=== PATIENT | female | born 1980 | race Caucasian/White ===

== ENCOUNTER 2017-11-09 18:14 | Emergency (ER) | payer MEDICARE, MEDICAID ==
[~2017-11-09] VITALS: Ht 165.1 cm; Wt 98.0 kg
[~2017-11-09 18:14] MED LIST: AFRIN NS; CLON-529 PO; LIDO35.4 TOP; TRAM50TA2 PO; compounded cream TOP
[2017-11-09 19:06] LABS: BASOPHILS # (AUTO) 0.1 X10'3 (0-0.2); BASOPHILS % (AUTO) 1.4 % (0-1); EOSINOPHILS # (AUTO) 0.1 X10'3 (0-0.9); EOSINOPHILS % (AUTO) 2.8 % (0-6); HEMATOCRIT 35.8 % (35.0-45.0); HEMOGLOBIN 12.3 g/dl (12.0-16.0); LYMPHOCYTES # (AUTO) 1.7 X10'3 (1.1-4.8); LYMPHOCYTES % (AUTO) 32.4 % (21-51); MEAN CORPUSCULAR HEMOGLOBIN 28.1 PG (27.0-31.0); MEAN CORPUSCULAR HGB CONC 34.3 % (33.0-36.5); MEAN PLATELET VOLUME 8.3 FL (7.4-10.4); MONOCYTES # (AUTO) 0.2 X10'3 (0-0.9); MONOCYTES % (AUTO) 4.5 % (2-12); NEUTROPHILS # (AUTO) 3.1 X10'3 (1.8-7.7); NEUTROPHILS % (AUTO) 58.9 % (42-75); PLATELET COUNT 290 X10'3 (140-440); RED BLOOD COUNT 4.36 X10'6 (4.20-5.60); RED CELL DISTRIBUTION WIDTH 13.5 % (11.5-14.5); WHITE BLOOD COUNT 5.2 X10'3 (4.5-11.0)
[2017-11-09 19:16] LABS: ALANINE AMINOTRANSFERASE 51 U/L (12-78); ALBUMIN 3.4 G/DL (3.4-5.0); ALBUMIN/GLOBULIN RATIO 0.9 (1.1-1.5); ALKALINE PHOSPHATASE 96 IU/L (46-116); ANION GAP 8 (8-16); ASPARTATE AMINO TRANSFERASE 45 U/L (10-37); BILIRUBIN,TOTAL 0.5 MG/DL (0.1-1.0); BLOOD UREA NITROGEN 9 MG/DL (7-18); BUN/CREATININE RATIO 11.5 (6.6-38.0); CHLORIDE 106 MMOL/L (99-107); CREATININE 0.78 MG/DL (0.40-0.90); GLUCOSE 107 MG/DL (70-104); POTASSIUM 3.7 MMOL/L (3.5-5.1); SODIUM 141 MMOL/L (135-145); TOTAL CARBON DIOXIDE 27.2 MMOL/L (24-32); TOTAL PROTEIN 7.1 G/DL (6.4-8.2); eGFR 83 ML/MIN
[2017-11-09 19:25] LABS: ETHANOL < 0.010 GM/DL (0.0-0.010)
[2017-11-09 19:35] LABS: URINE HCG NEGATIVE (NEG)
[2017-11-09 19:46] LABS: URINE AMPHETAMINE SCREEN NEGATIVE (Neg); URINE BARBITUATE SCREEN NEGATIVE (Neg); URINE BENZODIAZEPINES SCREEN NEGATIVE (Neg); URINE CANNABINOID SCREEN NEGATIVE (Neg); URINE COCAINE SCREEN NEGATIVE (Neg); URINE METHADONE SCREEN NEGATIVE (Neg); URINE OPIATE SCREEN POSITIVE (Neg); URINE PHENCYCLIDINE SCREEN NEGATIVE (Neg)
[2017-11-09 19:56] LABS: CLARITY,URINE CLEAR (Clear); COLOR,URINE ORANGE (Yellow); GLUCOSE, URINE NEGATIVE (Neg); KETONES,URINE NEGATIVE (Neg); LEUKOCYTE ESTERASE ,URINE SMALL (Neg); NITRITES, URINE NEGATIVE (Neg); OCCULT BLOOD,URINE NEGATIVE (Neg); PROTEIN,URINE NEGATIVE (Neg)
[2017-11-09] MEDS ORDERED: CIPR-259 PO (20:01)
[2017-11-09] MEDS ORDERED: METR500T4 PO (20:01)
[2017-11-09] MEDS ORDERED: AFRIN NS (20:02)
[2017-11-09] MEDS ORDERED: BACL10TA PO (20:04)
[2017-11-09] MEDS ORDERED: HYDR-565 PO (20:04)
[2017-11-09] MEDS ORDERED: GABA600T2 PO ×2 (20:05→23:15)
[2017-11-09 20:06] VITALS: BP 128/66
[2017-11-09] MEDS ORDERED: ACET-2119 PO (20:06)
[2017-11-09 20:08] LABS: UA COLLECTION TYPE CLN CATCH MIDSTREAM
[2017-11-09 20:10] LABS: BACTERIA,URINE 3+ /HPF (Neg); SQUAMOUS EPITHELIAL CELL,UR MODERATE /LPF (FEW)
[2017-11-09 20:11] LABS: RBC,URINE 0-2 /HPF (0-2)
[2017-11-09] MEDS ORDERED: CLON-528 PO (23:15)
== END 2017-11-09 22:12 ==
LOC: ER 18:15
DX: N39.0 Urinary tract infection, site not specified (principal); R45.851 Suicidal ideations; F11.20 Opioid dependence, uncomplicated; G89.29 Other chronic pain; Z88.0 Allergy status to penicillin; Z88.8 Allergy status to other drugs, medicaments and biological substances; Z79.899 Other long term (current) drug therapy
CPT/HCPCS: 36415; 80053; 80305; 80320; 81001; 81025; 84443; 85025; 99285

== ENCOUNTER 2017-11-09 21:30 | Inpatient (IN) | payer MEDICARE, MEDICAID ==
[~2017-11-09] VITALS: Ht 165.1 cm; Wt 96.8 kg
[~2017-11-09 21:30] MED LIST changes: +ACET-2119 PO; +BACL10TA PO; +CIPR-259 PO; +GABA600T2 PO; +HYDR-565 PO; +METR500T4 PO
[2017-11-09 22:49] VITALS: BP 154/75
[2017-11-09] MEDS ORDERED: GABA600T2 PO (23:15)
[2017-11-09] MEDS ORDERED: CLON-528 PO (23:15)
[2017-11-09] MEDS ORDERED: traMADol 50MG tablet PO PRN (23:30)
[2017-11-09] MEDS ORDERED: HYDROcodone/acetaminophen 10/325mg tab PO PRN (23:30)
[2017-11-10] MEDS: cloNIDine 0.1 mg tablet PO SCH ×2 (00:08→21:02)
[2017-11-10] MEDS: gabapentin 300mg capsule PO SCH ×4 (00:08→21:02)
[2017-11-10] MEDS: clonazePAM 0.5mg tablet PO PRN ×2 (00:08→21:03)
[2017-11-10] MEDS: baclofen 10mg tablet PO SCH ×2 (00:08→21:02)
[2017-11-10 08:00] VITALS: BP 128/70
[2017-11-10 20:37] VITALS: BP 136/81
[2017-11-10] MEDS: oxymetazoline 15 ML nasal spray NS SCH (21:05)
[2017-11-11] MEDS: gabapentin 300mg capsule PO SCH ×3 (07:54→21:34)
[2017-11-11 08:00] VITALS: BP 103/53
[2017-11-11] MEDS ORDERED: buprenorphine/naloxone 2-0.5mg sublingual tablet SL ONE (08:40)
[2017-11-11 19:32] VITALS: BP 147/74
[2017-11-11] MEDS: clonazePAM 0.5mg tablet PO PRN (21:34)
[2017-11-11] MEDS: oxymetazoline 15 ML nasal spray NS SCH (21:35)
[2017-11-11] MEDS: cloNIDine 0.1 mg tablet PO SCH (21:35)
[2017-11-11] MEDS: baclofen 10mg tablet PO SCH (21:35)
[2017-11-11] MEDS: buprenorphine/naloxone 2-0.5mg sublingual tablet SL SCH (21:53)
[2017-11-12] MEDS: buprenorphine/naloxone 2-0.5mg sublingual tablet SL SCH (05:52)
[2017-11-12 08:00] VITALS: BP 112/67
[2017-11-12] MEDS: gabapentin 300mg capsule PO SCH ×2 (08:08→13:02)
[2017-11-12] MEDS ORDERED: buprenorphine/naloxone 2-0.5mg sublingual tablet SL SCH (13:00)
[2017-11-12 19:00] VITALS: BP 128/82
[2017-11-12] MEDS: cloNIDine 0.1 mg tablet PO SCH (21:25)
[2017-11-12] MEDS: gabapentin 400mg capsule PO SCH (21:25)
[2017-11-12] MEDS: oxymetazoline 15 ML nasal spray NS SCH (21:26)
[2017-11-12] MEDS: baclofen 10mg tablet PO SCH (21:26)
[2017-11-12] MEDS: clonazePAM 0.5mg tablet PO PRN (21:46)
[2017-11-13 07:39] VITALS: BP 99/58
[2017-11-13] MEDS: gabapentin 400mg capsule PO SCH ×3 (07:45→20:39)
[2017-11-13] MEDS: buprenorphine/naloxone 2-0.5mg sublingual tablet SL SCH ×2 (07:45→20:39)
[2017-11-13] MEDS: metroNIDAZOLE 500mg tablet PO SCH (16:21)
[2017-11-13] MEDS: Protein Smoothie (high protein) 240ml (8oz) cup PO SCH (18:00)
[2017-11-13 19:00] VITALS: BP_SYST 124; BP_SYST 136; BP_DIAS 66; BP_DIAS 80
[2017-11-13] MEDS: ciprofloxacin 250mg tablet PO SCH (19:48)
[2017-11-13] MEDS: cloNIDine 0.1 mg tablet PO SCH (20:39)
[2017-11-13] MEDS: oxymetazoline 15 ML nasal spray NS SCH (20:39)
[2017-11-13] MEDS: baclofen 10mg tablet PO SCH (20:39)
[2017-11-13] MEDS: clonazePAM 0.5mg tablet PO PRN (21:29)
[2017-11-14] MEDS: metroNIDAZOLE 500mg tablet PO SCH ×4 (00:27→23:59)
[2017-11-14 08:00] VITALS: BP 114/70
[2017-11-14] MEDS: Protein Smoothie (high protein) 240ml (8oz) cup PO SCH ×3 (08:00→18:00)
[2017-11-14] MEDS: ciprofloxacin 250mg tablet PO SCH ×2 (08:00→21:01)
[2017-11-14] MEDS: buprenorphine/naloxone 2-0.5mg sublingual tablet SL SCH ×2 (08:00→21:01)
[2017-11-14] MEDS: gabapentin 400mg capsule PO SCH ×3 (08:01→21:00)
[2017-11-14 20:00] VITALS: BP 118/67
[2017-11-14] MEDS: lactobacillus rhamnosus 10,000 MMU CELLS/CAPSULE PO SCH (21:00)
[2017-11-14] MEDS: cloNIDine 0.1 mg tablet PO SCH (21:00)
[2017-11-14] MEDS: baclofen 10mg tablet PO SCH (21:01)
[2017-11-14] MEDS: clonazePAM 0.5mg tablet PO PRN (21:20)
[2017-11-15 08:00] VITALS: BP 93/59
[2017-11-15] MEDS: Protein Smoothie (high protein) 240ml (8oz) cup PO SCH ×3 (08:00→17:46)
[2017-11-15] MEDS: ciprofloxacin 250mg tablet PO SCH ×2 (08:05→20:00)
[2017-11-15] MEDS: gabapentin 400mg capsule PO SCH ×3 (08:06→20:25)
[2017-11-15] MEDS: buprenorphine/naloxone 2-0.5mg sublingual tablet SL SCH ×2 (08:06→20:25)
[2017-11-15] MEDS: metroNIDAZOLE 500mg tablet PO SCH ×2 (08:06→16:07)
[2017-11-15] MEDS: lactobacillus rhamnosus 10,000 MMU CELLS/CAPSULE PO SCH ×2 (08:06→20:25)
[2017-11-15] MEDS ORDERED: acetaminophen 325mg tablet PO PRN (16:10)
[2017-11-15 20:00] VITALS: BP 115/60
[2017-11-15] MEDS: cloNIDine 0.1 mg tablet PO SCH (20:27)
[2017-11-15] MEDS: baclofen 10mg tablet PO SCH (20:28)
[2017-11-15] MEDS: clonazePAM 0.5mg tablet PO PRN (21:00)
[2017-11-16 08:00] VITALS: BP 101/51
[2017-11-16] MEDS: Protein Smoothie (high protein) 240ml (8oz) cup PO SCH ×3 (08:00→18:00)
[2017-11-16] MEDS: metroNIDAZOLE 500mg tablet PO SCH ×3 (08:00→15:49)
[2017-11-16] MEDS: ciprofloxacin 250mg tablet PO SCH ×2 (08:00→20:00)
[2017-11-16] MEDS: lactobacillus rhamnosus 10,000 MMU CELLS/CAPSULE PO SCH ×2 (08:11→20:15)
[2017-11-16] MEDS: buprenorphine/naloxone 2-0.5mg sublingual tablet SL SCH ×2 (08:11→20:15)
[2017-11-16] MEDS: gabapentin 400mg capsule PO SCH ×3 (08:12→20:15)
[2017-11-16 19:00] VITALS: BP 118/65
[2017-11-16] MEDS: baclofen 10mg tablet PO SCH (20:14)
[2017-11-16] MEDS: clonazePAM 0.5mg tablet PO PRN (20:14)
[2017-11-16] MEDS: cloNIDine 0.1 mg tablet PO SCH (20:15)
[2017-11-17] MEDS: lactobacillus rhamnosus 10,000 MMU CELLS/CAPSULE PO SCH (07:57)
[2017-11-17] MEDS: buprenorphine/naloxone 2-0.5mg sublingual tablet SL SCH (07:58)
[2017-11-17] MEDS: gabapentin 400mg capsule PO SCH (07:58)
[2017-11-17 08:00] VITALS: BP 94/52
[2017-11-17] MEDS: metroNIDAZOLE 500mg tablet PO SCH ×2 (08:00)
[2017-11-17] MEDS: Protein Smoothie (high protein) 240ml (8oz) cup PO SCH (08:00)
[2017-11-17] MEDS: ciprofloxacin 250mg tablet PO SCH (08:00)
[2017-11-17] MEDS ORDERED: BUPR1TAB52 SL (09:27)
[2017-11-17] MEDS ORDERED: GABA800T2 PO (09:27)
== END 2017-11-17 12:45 | disposition home or self-care (01) | DRG 885 ==
LOC: ADULT MH 21:30
PROVIDERS: ADMIT Psychiatry & Neurology Psychiatry; ATTEND Psychiatry & Neurology Psychiatry
DX: F33.2 Major depressive disorder, recurrent severe without psychotic features (principal); R45.851 Suicidal ideations; K57.92 Diverticulitis of intestine, part unspecified, without perforation or abscess without bleeding; F11.10 Opioid abuse, uncomplicated; G89.29 Other chronic pain; F60.3 Borderline personality disorder; Z90.49 Acquired absence of other specified parts of digestive tract; Z98.84 Bariatric surgery status; Z88.0 Allergy status to penicillin; Z88.8 Allergy status to other drugs, medicaments and biological substances; Z79.899 Other long term (current) drug therapy; Z83.3 Family history of diabetes mellitus
CPT/HCPCS: 87070; 99285; J3490

== ENCOUNTER 2018-02-10 17:03 | Emergency (ER) | payer MEDICARE, MEDICAID ==
[~2018-02-10] VITALS: Ht 165.1 cm; Wt 103.8 kg
[~2018-02-10 17:03] MED LIST changes: -ACET-2119 PO; -AFRIN NS; +BUPR1TAB52 SL; -CIPR-259 PO; +CLON-528 PO; -GABA600T2 PO; +GABA800T2 PO; -HYDR-565 PO; -LIDO35.4 TOP; -METR500T4 PO; -TRAM50TA2 PO; -compounded cream TOP
[2018-02-10 17:46] LABS: URINE HCG NEGATIVE (NEG)
[2018-02-10 17:53] LABS: ALANINE AMINOTRANSFERASE 21 U/L (12-78); ALBUMIN 3.3 G/DL (3.4-5.0); ALBUMIN/GLOBULIN RATIO 0.8 (1.1-1.5); ALKALINE PHOSPHATASE 80 IU/L (46-116); ANION GAP 12 (8-16); ASPARTATE AMINO TRANSFERASE 15 U/L (10-37); BILIRUBIN,TOTAL 0.3 MG/DL (0.1-1.0); BLOOD UREA NITROGEN 11 MG/DL (7-18); BUN/CREATININE RATIO 10.5 (6.6-38.0); CALCIUM 8.8 MG/DL (8.5-10.1); CHLORIDE 107 MMOL/L (99-107); CREATININE 1.05 MG/DL (0.40-0.90); GLUCOSE 213 MG/DL (70-104); POTASSIUM 3.7 MMOL/L (3.5-5.1); SODIUM 142 MMOL/L (135-145); TOTAL CARBON DIOXIDE 23.4 MMOL/L (24-32); TOTAL PROTEIN 7.2 G/DL (6.4-8.2); eGFR 59 ML/MIN
[2018-02-10 17:55] LABS: URINE AMPHETAMINE SCREEN NEGATIVE (Neg); URINE BARBITUATE SCREEN NEGATIVE (Neg); URINE BENZODIAZEPINES SCREEN NEGATIVE (Neg); URINE CANNABINOID SCREEN NEGATIVE (Neg); URINE COCAINE SCREEN NEGATIVE (Neg); URINE METHADONE SCREEN NEGATIVE (Neg); URINE OPIATE SCREEN NEGATIVE (Neg); URINE PHENCYCLIDINE SCREEN NEGATIVE (Neg)
[2018-02-10 18:00] LABS: BASOPHILS % (AUTO) 0.6 % (0-1); EOSINOPHILS # (AUTO) 0.2 X10'3 (0-0.9); EOSINOPHILS % (AUTO) 2.8 % (0-6); HEMATOCRIT 33.9 % (35.0-45.0); HEMOGLOBIN 11.2 g/dl (12.0-16.0); LYMPHOCYTES # (AUTO) 1.4 X10'3 (1.1-4.8); LYMPHOCYTES % (AUTO) 23.8 % (21-51); MEAN CORPUSCULAR HEMOGLOBIN 26.1 PG (27.0-31.0); MEAN CORPUSCULAR VOLUME 79.2 FL (78-98); MEAN PLATELET VOLUME 9.7 FL (7.4-10.4); MONOCYTES # (AUTO) 0.2 X10'3 (0-0.9); MONOCYTES % (AUTO) 2.8 % (2-12); NEUTROPHILS # (AUTO) 4.1 X10'3 (1.8-7.7); PLATELET COUNT 284 X10'3 (140-440); RED BLOOD COUNT 4.28 X10'6 (4.20-5.60); RED CELL DISTRIBUTION WIDTH 14.5 % (11.5-14.5); WHITE BLOOD COUNT 5.8 X10'3 (4.5-11.0)
[2018-02-10 18:02] LABS: ETHANOL < 0.010 GM/DL (0.0-0.010)
[2018-02-10] MEDS ORDERED: AFRIN (18:17)
[2018-02-10] MEDS ORDERED: TURM500C4 PO (18:17)
[2018-02-10] MEDS ORDERED: [UNRECOGNIZED DRUG - OTHER] PO (18:17)
[2018-02-10] MEDS ORDERED: BUPR1FIL17 SL (18:17)
[2018-02-10] MEDS ORDERED: IBUP-1986 PO (18:17)
[2018-02-10] MEDS ORDERED: LACT1CAP65 PO (18:17)
[2018-02-10] MEDS ORDERED: GABA600T2 PO (18:17)
[2018-02-10] MEDS ORDERED: MAGN250T29 PO (18:17)
[2018-02-10] MEDS ORDERED: MULT-1085 PO (18:17)
[2018-02-10] MEDS ORDERED: POTASSIUM 100 MG PO (18:17)
[2018-02-10 21:47] VITALS: BP 156/78
== END 2018-02-10 21:52 ==
LOC: ER 17:03
DX: F32.9 Major depressive disorder, single episode, unspecified (principal); K57.90 Diverticulosis of intestine, part unspecified, without perforation or abscess without bleeding; G89.29 Other chronic pain; Z88.0 Allergy status to penicillin; Z88.8 Allergy status to other drugs, medicaments and biological substances
CPT/HCPCS: 36415; 80053; 80305; 80320; 81025; 84443; 85025; 99285